=== PATIENT | male | born 1975 | race Hispanic/Latino ===

== ENCOUNTER 2021-04-09 20:23 | Observation (INO) | payer OTHER ==
[~2021-04-09] VITALS: Ht 175.3 cm; Wt 54.4 kg
[2021-04-09 21:42] VITALS: BP 127/89
[2021-04-09 22:29] LABS: BASOPHILS % (AUTO) 0.7 % (0.0-5.0); EOSINOPHILS % (AUTO) 1.3 % (0.0-8.0); HEMATOCRIT 41.9 % (42-54); LYMPHOCYTES % (AUTO) 23.2 % (21.0-51.0); MEAN CORPUSCULAR HEMOGLOBIN 29.1 pg (27.0-33.0); MEAN CORPUSCULAR HGB CONC 32.9 g/dL (32.0-36.0); MEAN CORPUSCULAR VOLUME 88.2 fL (79-99); MONOCYTES % (AUTO) 9.9 % (3.0-13.0); NEUTROPHILS % (AUTO) 64.5 % (40.0-77.0); PLATELET COUNT (AUTO) 174 K/uL (130-400); RED BLOOD CELL COUNT(AUTO) 4.75 MIL/uL (4.50-6.20); RED CELL DISTRIBUTION WIDTH 16.5 % (11.0-15.5); WHITE BLOOD COUNT (AUTO) 5.4 K/uL (4.8-10.8)
[2021-04-09] MEDS ORDERED: 0.9%NACL 1000ML 1,000 ML IV ONE (22:30)
[2021-04-09] MEDS ORDERED: ONDANSETRON 4MG INJ IVP ONE (22:30)
[2021-04-09] MEDS ORDERED: DICYCLOMINE 20MG (10MG/ML) AMP IM ONE (22:30)
[2021-04-09 22:39] LABS: CREATININE 0.9 mg/dL (0.5-1.5); POTASSIUM 4.5 mmol/L (3.5-5.1)
[2021-04-09 22:44] LABS: ALBUMIN 4.5 g/dL (3.5-5.0); BILIRUBIN,TOTAL 0.6 mg/dL (0.2-1.0); TOTAL PROTEIN, SERUM 8.9 g/dL (6.0-8.3)
[2021-04-09 22:46] LABS: APPEARANCE,URINE Cloudy (CLEAR); BILIRUBIN,URINE Moderate (NEGATIVE); COLOR,URINE Dark Yellow (YELLOW); GLUCOSE, URINE (UA) Negative (NEGATIVE); KETONES,URINE 15 mg/dL (NEGATIVE); LEUKOCYTE ESTERASE ,URINE Trace (NEGATIVE); NITRATE,URINE Negative (NEGATIVE); OCCULT BLOOD,URINE Negative (NEGATIVE); PROTEIN,URINE POS 1+ mg/dL (NEGATIVE)
[2021-04-09 22:54] LABS: AMPHET/METH SCREEN,URINE POSITIVE (NEGATIVE); BARBITURATE SCREEN, URINE NEGATIVE (NEGATIVE); BENZODIAZEPINES SCREEN,URINE NEGATIVE (NEGATIVE); CANNABINOID SCREEN,URINE NEGATIVE (NEGATIVE); COCAINE SCREEN,URINE POSITIVE (NEGATIVE); OPIATE SCREEN,URINE NEGATIVE (NEGATIVE); PHENCYCLIDINE SCREEN,URINE NEGATIVE (NEGATIVE)
[2021-04-09 23:00] LABS: BACTERIA,URINE None Seen /HPF (None Seen); CALCIUM OXALATE CRYSTALS,UR Few /LPF (None Seen); MUCUS,URINE Rare LPF (None Seen); RBC,URINE None Seen /HPF (0-1); SQUAMOUS EPITHELIAL CELL,UR Few /HPF (0-2); WBC,URINE None Seen /HPF (0-1)
[2021-04-09 23:59] VITALS: BP 121/83
[2021-04-10] MEDS ORDERED: DICYCLOMINE 20MG (10MG/ML) AMP IM ONE (00:10)
[2021-04-10] MEDS ORDERED: ONDANSETRON 4MG INJ ONE (00:10)
[2021-04-10] MEDS ORDERED: MORPHINE 2 MG SYG IV PRN (05:00)
[2021-04-10] MEDS ORDERED: METRONIDAZOLE 500MG/100ML BAG 100 ML IV SCH (05:00)
[2021-04-10] MEDS ORDERED: ONDANSETRON 4MG INJ IV PRN (05:00)
[2021-04-10] MEDS ORDERED: 0.9%NACL 1000ML 1,000 ML IV SCH (05:00)
[2021-04-10] MEDS ORDERED: LEVOFLOXACIN 500 MG/D5W 100 ML 100 ML IV SCH (05:00)
[2021-04-10] MEDS ORDERED: FAMOTIDINE 20MG VIAL IV SCH (09:00)
[2021-04-10] MEDS ORDERED: HEPARIN 5,000 UNIT VIAL SQ SCH (09:00)
[2021-04-10 10:15] VITALS: BP 111/72
[2021-04-10] MEDS ORDERED: LACTATED RINGERS 1000ML 1,000 ML IV SCH (11:30)
[2021-04-10] MEDS ORDERED: NITAZOXANIDE 500 MG TAB PO SCH (21:00)
== END 2021-04-10 15:40 | disposition left against medical advice (07) ==
LOC: EDH 20:23 → EDHIP 04-10 05:00
PROVIDERS: ADMIT Hospitalist; ATTEND Hospitalist
DX: K52.9 Noninfective gastroenteritis and colitis, unspecified (principal); F20.9 Schizophrenia, unspecified; R16.1 Splenomegaly, not elsewhere classified; I45.10 Unspecified right bundle-branch block; B20 Human immunodeficiency virus [HIV] disease; Z79.899 Other long term (current) drug therapy
CPT/HCPCS: 36415 ×2; 74021; 74176; 76705; 80053; 80305; 81001; 82150; 82270; 82550; 83630; 83690; 85025; 87015; 87046; 87177; 87324; 87328; 87507; 93005; 96361 ×2; 96365; 96366; 96367; 96372 ×2; 96375 ×2; 99285; G0378 ×11; J0500; J1644; J1956; J2405; J3490 ×2; J7120; J7030

== ENCOUNTER 2021-09-02 07:26 | Inpatient (IN) | payer OTHER ==
[~2021-09-02] VITALS: Ht 172.7 cm; Wt 59.9 kg
[2021-09-02 07:48] LABS: BASOPHILS % (AUTO) 0.5 % (0.0-5.0); EOSINOPHILS % (AUTO) 1.1 % (0.0-8.0); HEMATOCRIT 48.7 % (42-54); LYMPHOCYTES % (AUTO) 21.7 % (21.0-51.0); MEAN CORPUSCULAR HEMOGLOBIN 28.6 pg (27.0-33.0); MEAN CORPUSCULAR HGB CONC 33.1 g/dL (32.0-36.0); MEAN CORPUSCULAR VOLUME 86.5 fL (79-99); MONOCYTES % (AUTO) 5.9 % (3.0-13.0); NEUTROPHILS % (AUTO) 70.4 % (40.0-77.0); PLATELET COUNT (AUTO) 308 K/uL (130-400); RED BLOOD CELL COUNT(AUTO) 5.63 MIL/uL (4.50-6.20); RED CELL DISTRIBUTION WIDTH 13.7 % (11.0-15.5); WHITE BLOOD COUNT (AUTO) 11.8 K/uL (4.8-10.8)
[2021-09-02 07:54] LABS: CREATININE 1.6 mg/dL (0.5-1.5); POTASSIUM 5.2 mmol/L (3.5-5.1)
[2021-09-02 07:59] LABS: ALBUMIN 5.5 g/dL (3.5-5.0); BILIRUBIN,TOTAL 0.6 mg/dL (0.2-1.0)
[2021-09-02] MEDS ORDERED: MORPHINE 4 MG SYG IV SCH (08:00)
[2021-09-02] MEDS ORDERED: ONDANSETRON 4MG INJ IVP SCH (08:00)
[2021-09-02] MEDS ORDERED: 0.9%NACL 1000ML 2,000 ML IV SCH (08:00)
[2021-09-02] MEDS ORDERED: DIPHENOXYLATE HCL/ATROPINE 2.5/0.025 MG TAB PO SCH (09:30)
[2021-09-02] MEDS ORDERED: HYDROMORPHONE 1 MG INJ IVP SCH (09:30)
[2021-09-02 12:21] LABS: APPEARANCE,URINE Cloudy (CLEAR); BILIRUBIN,URINE Negative (NEGATIVE); COLOR,URINE Yellow (YELLOW); GLUCOSE, URINE (UA) Negative (NEGATIVE); KETONES,URINE Negative (NEGATIVE); LEUKOCYTE ESTERASE ,URINE Negative (NEGATIVE); NITRATE,URINE Negative (NEGATIVE); OCCULT BLOOD,URINE Negative (NEGATIVE); PROTEIN,URINE POS 1+ mg/dL (NEGATIVE); UROBILINOGEN,URINE 0.2 mg/dL (0.2-1.0)
[2021-09-02 12:34] LABS: BACTERIA,URINE None Seen /HPF (None Seen); RBC,URINE 0-1 /HPF (0-1); WBC,URINE 0-1 /HPF (0-1)
[2021-09-02 12:36] LABS: FINE GRANULAR CASTS,URINE 0-2 /LPF (None Seen); HYALINE CASTS, URINE 26-50 /LPF (0-1 /LPF); MUCUS,URINE Moderate LPF (None Seen); SQUAMOUS EPITHELIAL CELL,UR 0-2 /HPF (0-2)
[2021-09-02] MEDS ORDERED: ONDANSETRON 4MG INJ IV PRN (13:00)
[2021-09-02] MEDS ORDERED: VANCOMYCIN PO SCH ×2 (13:00)
[2021-09-02] MEDS ORDERED: 0.9%NACL 1000ML 1,000 ML IV SCH (13:00)
[2021-09-02 13:24] VITALS: BP 115/78
[2021-09-02] MEDS ORDERED: METRONIDAZOLE 500 MG TABLET PO SCH (14:00)
[2021-09-02 14:13] LABS: AMPHET/METH SCREEN,URINE NEGATIVE (NEGATIVE); BARBITURATE SCREEN, URINE NEGATIVE (NEGATIVE); BENZODIAZEPINES SCREEN,URINE NEGATIVE (NEGATIVE); CANNABINOID SCREEN,URINE NEGATIVE (NEGATIVE); COCAINE SCREEN,URINE NEGATIVE (NEGATIVE); OPIATE SCREEN,URINE POSITIVE (NEGATIVE); PHENCYCLIDINE SCREEN,URINE NEGATIVE (NEGATIVE)
[2021-09-02] MEDS ORDERED: NITAZOXANIDE 500 MG TAB PO SCH (14:26)
[2021-09-02] MEDS ORDERED: SULFAMETHOX-TMP DS 800/160 TAB PO SCH (14:26)
[2021-09-02 15:03] LABS: THYROID STIMULATING HORMONE 2.32 uIU/mL (0.36-3.74)
[2021-09-02 15:16] LABS: CRP QUANTITATIVE < 2.00 mg/L (0.00-9.0)
[2021-09-02] MEDS ORDERED: PEG 3350/NA SULF,BICARB,CL/KCL 4000 ML SOLN PO ONE (17:00)
[2021-09-02] MEDS ORDERED: FAMOTIDINE 20MG VIAL IV SCH (21:00)
== END 2021-09-02 18:00 | disposition left against medical advice (07) | DRG 683 ==
LOC: EDH 07:26 → EDHIP 12:37
PROVIDERS: ADMIT Internal Medicine; ATTEND Internal Medicine
DX: N17.9 Acute kidney failure, unspecified (principal); E87.1 Hypo-osmolality and hyponatremia; E87.2 Acidosis; K52.9 Noninfective gastroenteritis and colitis, unspecified; F20.9 Schizophrenia, unspecified; E86.1 Hypovolemia; E87.5 Hyperkalemia; E86.0 Dehydration; Z20.822 Contact with and (suspected) exposure to COVID-19; Z91.19 Patient's noncompliance with other medical treatment and regimen; Z21 Asymptomatic human immunodeficiency virus [HIV] infection status
CPT/HCPCS: 36415; 71045; 80053; 80305; 81001; 82150; 82270; 82306; 82308; 82607; 82746; 82784; 82941; 83516; 83605; 83630; 83690; 83993; 84145; 84443; 85025; 86140; 87046; 87177; 87324; 87328; 87329; 87536; 87635; 87804; C9803; G0378; J1170; J2270; J2405; J3370; J7030

== ENCOUNTER 2023-02-23 09:32 | Observation (INO) | payer OTHER ==
[~2023-02-23] VITALS: Ht 175.3 cm; Wt 79.4 kg
[2023-02-23 10:08] LABS: BASOPHILS % (AUTO) 0.9 % (0.0-5.0); EOSINOPHILS % (AUTO) 5.1 % (0.0-8.0); HEMATOCRIT 45.8 % (42-54); LYMPHOCYTES % (AUTO) 22.7 % (21.0-51.0); MEAN CORPUSCULAR HEMOGLOBIN 30.2 pg (27.0-33.0); MEAN CORPUSCULAR HGB CONC 35.4 g/dL (32.0-36.0); MEAN CORPUSCULAR VOLUME 85.4 fL (79-99); MONOCYTES % (AUTO) 8.4 % (3.0-13.0); NEUTROPHILS % (AUTO) 62.5 % (40.0-77.0); PLATELET COUNT (AUTO) 206 K/uL (130-400); RED BLOOD CELL COUNT(AUTO) 5.36 MIL/uL (4.50-6.20)
[2023-02-23 10:18] LABS: CREATININE 1.1 mg/dL (0.5-1.5); POTASSIUM 3.3 mmol/L (3.5-5.1)
[2023-02-23 10:25] LABS: TOTAL PROTEIN, SERUM 9.6 g/dL (6.0-8.3)
[2023-02-23 11:23] LABS: MAGNESIUM 1.6 mg/dL (1.80-2.40)
[2023-02-23] MEDS ORDERED: ONDANSETRON 4MG INJ IVP ONE (11:30)
[2023-02-23] MEDS ORDERED: 0.9%NACL 1000ML 1,000 ML IV SCH (11:30)
[2023-02-23] MEDS ORDERED: MORPHINE 2 MG SYG IVP ONE (11:30)
[2023-02-23] MEDS: MAGNESIUM 2GM PREMIX 50ML 50 ML IV SCH (12:59)
[2023-02-23] MEDS ORDERED: ONDANSETRON 4MG INJ IV PRN (13:00)
[2023-02-23] MEDS ORDERED: KCL 20 MEQ ERTAB PO ONE (13:00)
[2023-02-23] MEDS: LACTOBACILLUS RHAMNOSUS GG 1 EACH CAP.SPRINK PO SCH (13:00)
[2023-02-23] MEDS ORDERED: ACETAMINOPHEN 325 MG TAB PO PRN ×2 (13:00)
[2023-02-23] MEDS ORDERED: POTASSIUM CHLORIDE 10% ELIXIR 20 MEQ/15 ML UDCUP PO PRN (13:30)
[2023-02-23] MEDS ORDERED: MAGNESIUM 2GM PREMIX 50ML 50 ML IV PRN (13:30)
[2023-02-23] MEDS ORDERED: POTASSIUM CHLORIDE 20MEQ/100ML 100 ML IV PRN (13:30)
[2023-02-23] MEDS: METRONIDAZOLE 500MG/100ML BAG 100 ML IVPB SCH ×2 (13:39→20:42)
[2023-02-23 16:00] VITALS: BP 119/81
[2023-02-23] MEDS: LOPERAMIDE HCL 2 MG CAP PO PRN (17:24)
[2023-02-23] MEDS: ACETAMINOPHEN WITH CODEINE 1 TAB TAB PO PRN (17:24)
[2023-02-23 19:02] VITALS: BP 121/80
[2023-02-23] MEDS: FAMOTIDINE 20MG VIAL IV SCH (20:42)
[2023-02-23] MEDS: MORPHINE 2 MG SYG IVP PRN (20:42)
[2023-02-23 23:17] VITALS: BP 121/80
[2023-02-24] MEDS: LOPERAMIDE HCL 2 MG CAP PO PRN ×4 (03:47→17:27)
[2023-02-24 04:24] VITALS: BP 114/85
[2023-02-24 05:05] LABS: EOSINOPHILS % (AUTO) 7.9 % (0.0-8.0); HEMATOCRIT 37.9 % (42-54); LYMPHOCYTES % (AUTO) 30.8 % (21.0-51.0); MEAN CORPUSCULAR HEMOGLOBIN 30.5 pg (27.0-33.0); MEAN CORPUSCULAR HGB CONC 35.4 g/dL (32.0-36.0); MEAN CORPUSCULAR VOLUME 86.1 fL (79-99); MONOCYTES % (AUTO) 7.7 % (3.0-13.0); NEUTROPHILS % (AUTO) 52.4 % (40.0-77.0); PLATELET COUNT (AUTO) 143 K/uL (130-400); RED CELL DISTRIBUTION WIDTH 12.9 % (11.0-15.5); WHITE BLOOD COUNT (AUTO) 4.8 K/uL (4.8-10.8)
[2023-02-24] MEDS: METRONIDAZOLE 500MG/100ML BAG 100 ML IVPB SCH (05:13)
[2023-02-24 05:20] LABS: ALBUMIN 4.2 g/dL (3.5-5.0); CREATININE 0.8 mg/dL (0.5-1.5); POTASSIUM 3.1 mmol/L (3.5-5.1)
[2023-02-24 08:11] VITALS: BP 116/77
[2023-02-24] MEDS: ENOXAPARIN SODIUM 30 MG/0.3 ML SQ SCH (09:59)
[2023-02-24] MEDS: KCL 20 MEQ ERTAB PO PRN ×2 (09:59→17:28)
[2023-02-24] MEDS: ACETAMINOPHEN WITH CODEINE 1 TAB TAB PO PRN ×2 (09:59→17:27)
[2023-02-24] MEDS: FAMOTIDINE 20MG VIAL IV SCH ×2 (09:59→19:59)
[2023-02-24] MEDS ORDERED: QUET100T PO (10:13)
[2023-02-24] MEDS ORDERED: BICT1TAB PO (10:13)
[2023-02-24] MEDS ORDERED: PANT20TA18 PO (10:13)
[2023-02-24] MEDS ORDERED: ONDA4TAB10 PO (10:13)
[2023-02-24] MEDS ORDERED: ESCI-8 PO (10:13)
[2023-02-24] MEDS ORDERED: ONDANSETRON ODT 4MG TAB PO PRN (11:30)
[2023-02-24 11:39] VITALS: BP 127/76
[2023-02-24] MEDS: LACTOBACILLUS RHAMNOSUS GG 1 EACH CAP.SPRINK PO SCH (13:00)
[2023-02-24] MEDS ORDERED: PHARMACY COMMUNICATION MISC SCH (15:00)
[2023-02-24 16:25] VITALS: BP 113/76
[2023-02-24 19:37] VITALS: BP 121/73
[2023-02-24] MEDS: NITAZOXANIDE 500 MG TAB PO SCH (20:04)
[2023-02-24] MEDS ORDERED: QUETIAPINE FUMARATE 100 MG TAB PO SCH (21:00)
[2023-02-24 23:30] VITALS: BP 107/65
[2023-02-25 03:58] VITALS: BP 107/66
[2023-02-25 05:29] LABS: EOSINOPHILS % (AUTO) 7.4 % (0.0-8.0); HEMATOCRIT 33.7 % (42-54); LYMPHOCYTES % (AUTO) 31.4 % (21.0-51.0); MEAN CORPUSCULAR HEMOGLOBIN 31.1 pg (27.0-33.0); MEAN CORPUSCULAR HGB CONC 36.2 g/dL (32.0-36.0); MONOCYTES % (AUTO) 9.1 % (3.0-13.0); NEUTROPHILS % (AUTO) 50.7 % (40.0-77.0); PLATELET COUNT (AUTO) 138 K/uL (130-400); RED BLOOD CELL COUNT(AUTO) 3.92 MIL/uL (4.50-6.20); RED CELL DISTRIBUTION WIDTH 13.1 % (11.0-15.5); WHITE BLOOD COUNT (AUTO) 4.8 K/uL (4.8-10.8)
[2023-02-25 05:51] LABS: CREATININE 0.8 mg/dL (0.5-1.5); MAGNESIUM 1.5 mg/dL (1.80-2.40); POTASSIUM 3.6 mmol/L (3.5-5.1)
[2023-02-25] MEDS: MAGNESIUM 2GM PREMIX 50ML 50 ML IV SCH (06:32)
[2023-02-25] MEDS: KCL 20 MEQ ERTAB PO PRN ×2 (06:32→16:37)
[2023-02-25 07:45] VITALS: BP 114/71
[2023-02-25] MEDS: ENOXAPARIN SODIUM 30 MG/0.3 ML SQ SCH (08:51)
[2023-02-25] MEDS: MORPHINE 2 MG SYG IVP PRN (08:51)
[2023-02-25] MEDS: FAMOTIDINE 20MG VIAL IV SCH (08:52)
[2023-02-25] MEDS ORDERED: Escitalopram Oxalate 5 MG PO SCH (09:00)
[2023-02-25] MEDS: NITAZOXANIDE 500 MG TAB PO SCH (09:00)
[2023-02-25] MEDS ORDERED: PANTOPRAZOLE SODIUM 20 MG PO SCH (09:00)
[2023-02-25 10:49] VITALS: BP 111/76
[2023-02-25] MEDS: LACTOBACILLUS RHAMNOSUS GG 1 EACH CAP.SPRINK PO SCH (14:09)
[2023-02-25 16:19] VITALS: BP 115/71
[2023-02-25] MEDS ORDERED: [UNRECOGNIZED DRUG - CODE] PO (19:04)
[2023-02-25] MEDS ORDERED: DIPH1TAB PO (19:04)
[2023-02-25] MEDS ORDERED: DICY20TA3 PO (19:04)
[2023-02-25 19:32] VITALS: BP 121/86
[2023-02-27 18:10] LABS: CRYPTOSPORIDIUM EIA STOOL Negative (Negative)
== END 2023-02-25 20:10 | disposition home or self-care (01) ==
LOC: EDH 09:32 → EDHIP 12:58 → 4AH 16:00
PROVIDERS: ADMIT Hospitalist; ATTEND Hospitalist
DX: K52.9 Noninfective gastroenteritis and colitis, unspecified (principal); E87.6 Hypokalemia; A07.2 Cryptosporidiosis; N17.9 Acute kidney failure, unspecified; D72.829 Elevated white blood cell count, unspecified; E87.1 Hypo-osmolality and hyponatremia; E83.42 Hypomagnesemia; R79.89 Other specified abnormal findings of blood chemistry; F20.9 Schizophrenia, unspecified; F43.10 Post-traumatic stress disorder, unspecified; E86.0 Dehydration; D69.6 Thrombocytopenia, unspecified; I10 Essential (primary) hypertension; F17.210 Nicotine dependence, cigarettes, uncomplicated; Z91.199 Patient's noncompliance with other medical treatment and regimen due to unspecified reason; Z79.899 Other long term (current) drug therapy
CPT/HCPCS: 96376 ×3; 96361; 96365; 96366 ×3; 96375; 96367; 99284; 83735 ×2; 80053 ×2; 83690; 85025 ×3; 87046; 83605; 87324; 82270; 36415 ×3; 87328; 83630; 96372 ×2; 84100; 80048; G0378 ×54; J3475 ×2; J3490 ×7; J2270 ×3; J7030; J2405; J1650 ×2